=== PATIENT | female | born 1960 | race Caucasian/White ===

== ENCOUNTER 2022-03-29 13:03 | Outpatient (CLI) | payer OTHER | END 2022-03-29 13:18 | disposition home or self-care (01) | LOC: RAD 13:03 | PROVIDERS: ATTEND General Practice | DX: M54.2 Cervicalgia (principal); M54.9 Dorsalgia, unspecified; M54.50 Low back pain, unspecified; M53.3 Sacrococcygeal disorders, not elsewhere classified; M79.651 Pain in right thigh; M25.551 Pain in right hip; M25.552 Pain in left hip ==